=== PATIENT | male | born 1985 | race Caucasian/White ===

== ENCOUNTER 2021-01-30 09:22 | Emergency (ER) | payer BC ==
[~2021-01-30] VITALS: Ht 180.3 cm; Wt 893.0 kg
[2021-01-30] MEDS ORDERED: KETOROLAC 15MG/ML VIAL IV ONE (09:45)
[2021-01-30 10:04] LABS: BASOPHILS % 0.7 % (0.0-2.0); EOSINOPHILS % 1.7 % (0.0-5.0); HEMOGLOBIN. 15.4 g/dL (14.0-18.0); LYMPHOCYTES % 26.9 % (20.0-50.0); MEAN PLATELET VOLUME 7.7 fl (7.4-10.4); MONOCYTES % 8.9 % (2.0-8.0); NEUTROPHILS % 61.8 % (40.0-76.0); PLATELET 293 x1000/uL (130-400); RED CELL DISTRIBUTION WIDTH 13.2 % (11.6-14.6)
[2021-01-30 10:06] LABS: CHLORIDE 103 mEq/L (98-107)
[2021-01-30 10:08] VITALS: BP 150/103
== END 2021-01-30 11:03 | disposition home or self-care (01) ==
LOC: ER 09:22
DX: M54.89 Other dorsalgia (principal); M79.10 Myalgia, unspecified site
CPT/HCPCS: 36415; 71046; 80048; 84484; 85025; 93005; 96374; 99285; J1885